=== PATIENT | male | born 1965 | race Hispanic/Latino ===

== ENCOUNTER 2017-08-02 09:09 | Emergency (ER) | payer BC ==
[2017-08-02] MEDS ORDERED: diphenhydrAMINE 50 MG/ML VIAL ONE (09:21)
[2017-08-02] MEDS ORDERED: Water For Inject, Bacteriostat 0 ML ONE (09:21)
[2017-08-02] MEDS ORDERED: methylPREDNISolone Sod Succ/PF 125 MG/2 ML VIAL ONE (09:21)
[2017-08-02] MEDS ORDERED: diphenhydrAMINE 50 MG CAP ONE (09:29)
[2017-08-02] MEDS ORDERED: predniSONE 20 MG TAB ONE (09:29)
[2017-08-02] MEDS ORDERED: Famotidine 20 MG TAB ONE (09:29)
== END 2017-08-02 10:42 | disposition home or self-care (01) ==
LOC: ERS 09:09
DX: L25.2 Unspecified contact dermatitis due to dyes (principal)
CPT/HCPCS: 99283; J1200; J2930; J7506